=== PATIENT | male | born 1965 | race Caucasian/White ===

== ENCOUNTER → 2021-01-29 | Outpatient (CLI) | payer OTHER ==
[2021-01-29 11:25] LABS: CREATININE SERUM 0.85 MG/DL (0.60-1.30)
== END ==
LOC: LAB 10:50
PROVIDERS: ATTEND Otolaryngology Otolaryngology/Facial Plastic Surgery
DX: R22.1 Localized swelling, mass and lump, neck (principal)
CPT/HCPCS: 36415; 82565; 84520

== ENCOUNTER → 2021-01-31 | Outpatient (CLI) | payer OTHER ==
[~2021-01-31] MED LIST: CATHETER FLUSH 10 ML SYR IV PRN; HOLD METFORMIN - RECEIVED CONTRAST 20 ML VIAL IV SCH; IOHEXOL 350 MG/ML 100 ML (OMNIPAQUE 350) VIAL IV ONE; NS 100 ML (IVPB) BAG IV ONE
--- NOTE | 2021-01-31 09:25 | Diagnostic Imaging Report ---
CLINICAL INDICATION: Patient with a left-sided lump for about 2 weeks under the left jaw. BB placed in the area. EXAM: Axial CT scan of the neck soft tissue performed with 75 mL of Omnipaque 350 IV contrast. Sagittal and coronal reformatted images were created. Auto Exposure Controls were utilized during the CT exam to meet ALARA standards for radiation dose reduction. COMPARISON: None. FINDINGS: There is no significant mass, fluid collection or fat stranding involving the left submandibular and left perimandibular region in the area of the BB marker. There is a 13 mm x 6 mm benign slender lymph node in the left level 1B submandibular region which is anteriorly adjacent to the BB marker. The left submandibular gland is minimally more prominent than the right side, but there is no mass or inflammation or abnormality of the left submandibular gland seen. There is no bony abnormality involving the left mandible. The nasopharynx, oropharynx, hypopharynx, and laryngeal soft tissue structures are unremarkable as visualized and symmetric. There is no lymphadenopathy. The salivary glands and thyroid gland are unremarkable. The neck vascular structures show no significant abnormality. The visualized upper lung [place] are clear. The visualized intracranial structures show no significant abnormality. Orbits and globes are unremarkable. There is mild mucosal thickening involving the left maxillary sinus, frontal sinus, ethmoid sinus, and sphenoid sinus. Mastoid air cells are unremarkable. There are multilevel cervical spine vertebral body spurs and facet arthropathy. There is severe right C3-C4 and moderate left C3-C4 neural foramen narrowing due to uncinate spurs. There is moderate bilateral C4-C5 neural foramen narrowing due to uncinate spurs. There is severe bilateral C5-C6 neural foramen narrowing due to uncinate spurs. There is severe left C6-C7 neural foramen narrowing due to uncinate spurs. There is at least mild central canal narrowing seen from the C3-C7 levels. There is severe loss of disk space height at the C3-C4, C5-C6, and C6-C7 levels and mild to moderate loss of disk space height at C4-C5 level. IMPRESSION: 1: There is no significant neck soft tissue abnormality, mass, lymphadenopathy, or fluid collection seen on this exam. There is a benign appearing slender lymph node in the left submandibular region which is near the BB marker. The left submandibular gland is minimally more prominent than the right side, but it is unremarkable. 2: The remainder of the neck soft tissue structures are unremarkable, as well. 3: There is mild paranasal sinus disease. 4: There is severe multilevel cervical spine degenerative disease. Dictated by: Dictated on workstation # [id number]
== END ==
LOC: RAD 07:52
PROVIDERS: ATTEND Otolaryngology Otolaryngology/Facial Plastic Surgery
DX: J32.9 Chronic sinusitis, unspecified (principal); M47.812 Spondylosis without myelopathy or radiculopathy, cervical region
CPT/HCPCS: 70491

== ENCOUNTER → 2021-02-12 | Outpatient (CLI) | payer OTHER | LOC: LABNPT 08:24 | PROVIDERS: ATTEND Internal Medicine Cardiovascular Disease | DX: Z20.822 Contact with and (suspected) exposure to COVID-19 (principal) | CPT/HCPCS: 87636 ==

== ENCOUNTER → 2021-08-07 | Outpatient (CLI) | payer OTHER ==
--- NOTE | 2021-08-07 15:54 | Diagnostic Imaging Report ---
INDICATION: PAIN OF RT SHOULDER COMPARISON: None. FINDINGS: 3 views of the right shoulder were obtained. There is no fracture, dislocation, or other acute bony abnormality identified. The soft tissues appear unremarkable. No radiopaque foreign body is identified. The visualized portions of the right lung are clear. IMPRESSION: No acute fractures or dislocations of the right shoulder. Dictated by: Dictated on workstation # [id number]
== END ==
LOC: ORTHO 14:45
PROVIDERS: ATTEND Orthopaedic Surgery
DX: M75.101 Unspecified rotator cuff tear or rupture of right shoulder, not specified as traumatic (principal); M75.21 Bicipital tendinitis, right shoulder
CPT/HCPCS: 73030; G0463; 99202